=== PATIENT | female | born 1955 | race Caucasian/White ===

== ENCOUNTER 2020-11-28 07:50 | Emergency (ER) | payer OTHER ==
[2020-11-28] MEDS ORDERED: TORADOL 10 MG T10 MG PO (10:51)
== END 2020-11-28 11:10 | disposition home or self-care (01) ==
LOC: ER1 07:50
DX: M54.5 Low back pain (principal); G89.29 Other chronic pain; I10 Essential (primary) hypertension; Z90.710 Acquired absence of both cervix and uterus
CPT/HCPCS: 72131; 96374; 96375; 99283; J1885; J2270; J2405